=== PATIENT | male | born 1970 | race Caucasian/White ===

== ENCOUNTER 2016-12-10 20:08 | Emergency (ER) | payer OTHER ==
[~2016-12-10] VITALS: Ht 175.3 cm; Wt 68.0 kg
--- OUTSIDE RECORDS SUMMARY | 2016-12-10 20:19 | External Medical Summary Rpt ---
Author Author , EARLINE PATTEN Address Unknown Phone [email or web address] [email or web address] Care Tribal Delegate Name Role Phone Joan Stanton MD, Unavailable Unavailable Joan Stanton MD Purpose Continuity of Care Document - 11-24-2012 through 2016 Problems Code Diagnosis DOS Provider Status 451.11 451.11 11-24-2012 [place] [facility]LE[facility] ITIS,FEMORA L VEIN(DEEP/S UP) Allergies, Adverse Reactions, Alerts Type Drug Allergy Adverse Reaction to Substance Substance Reaction Severity Penicillin Unknown Unknown Penicillin G Unknown Unknown Medications Na ND Rx Da Fi Fi Am Da Di Ph RX Ph St me C No te ll ll ou ys ag ar # ys at rm s nt no ma ic us Or Da si cy ia de te s n re d LO 00 07 0 No VE 07 -1 NO 50 0- Lo X 62 20 ng 10 30 13 er 0 1 MG Ac /M ti L ve SY RI NG E HY [address] 40 -1 OC 60 0- Lo OD 36 20 ng ON 56 13 er -A 2 CE Ac TA ti [place] ve NO PH EN 5- 32 5 Vital Signs 11-24-2012 22:46 Name Value Interpretat Reference Comment ion Range Body 98.7 [degF] Temperature BP 89 mm[Hg] Diastolic BP Systolic 160 mm[Hg] Heart 107 /min Rate/Pulse O2% 98 % Respiratory 20 /min Rate Encounters Encounter Start End Date Code Location Performer Type Date Emergency MARK Stanton MD (ER) 3 21:31 3 22:47 [facility]
--- OUTSIDE RECORDS SUMMARY | 2016-12-10 20:19 | External Medical Summary Rpt ---
Author Author , EARLINE PATTEN Address Unknown Phone [email or web address] [email or web address] Care Cheese Sprayer Name Role Phone Joan Stanton MD, Unavailable Unavailable Joan Stanton MD Purpose Continuity of Care Document - 11-24-2012 through 2016 Problems Code Diagnosis DOS Provider Status 451.11 451.11 11-24-2012 [place] [facility]LEBITIS&T [facility] ITIS,FEMORA L VEIN(DEEP/S UP) Allergies, Adverse Reactions, [...] er -A 2 CE Ac TA ti [place] ve NO PH EN 5- 32 5 Vital Signs 11-24-2012 22:46 Name Value Interpretat Reference Comment ion Range Body 98.7 [degF] Temperature BP 89 mm[Hg] Diastolic BP Systolic 160 mm[Hg] Heart 107 /min Rate/Pulse O2% 98 % Respiratory 20 /min Rate Encounters Encounter Start End Date Code Location Performer Type Date Emergency MARK Stanton MD (ER) 3 21:31 3 22:47 [facility]
--- OUTSIDE RECORDS SUMMARY | 2016-12-10 20:20 | External Medical Summary Rpt ---
Author Author EARLINE Ayala, [employer] Organization [employer] Address Unknown Phone Unavailable
--- OUTSIDE RECORDS SUMMARY | 2016-12-10 20:20 | External Medical Summary Rpt ---
Author Author SEAN Address Unknown Phone [email or web address] Purpose Continuity of Care Document - through 2016
--- OUTSIDE RECORDS SUMMARY | 2016-12-10 20:20 | External Medical Summary Rpt ---
Author Author SEAN Address Unknown Phone [email or web address] Purpose Continuity of Care Document - through 2016
--- OUTSIDE RECORDS SUMMARY | 2016-12-10 20:20 | External Medical Summary Rpt ---
Demographics Preferred Language Icelandic Marital Status Unknown Lutheran Affiliation Unknown Race Unknown Ethnic Group Unknown Author Author , SEAN PATTEN Address Unknown Phone Immunization Unable to retrieve immunization data due to connection failure with Immunization Registry. Please try again later.
--- OUTSIDE RECORDS SUMMARY | 2016-12-10 20:20 | External Medical Summary Rpt ---
Demographics Preferred Language Samoan Marital Status Unknown Yarsani Affiliation Unknown Race Unknown Ethnic Group Unknown Author Author , SEAN PATTEN Address Unknown Phone Immunization Unable to retrieve immunization data due to connection failure with Immunization Registry. Please try again later.
--- NOTE | 2016-12-10 20:42 | Urgent Treatment Center Report ---
History of Present Issue Date/Time Seen by Provider 12/10/162028 Visit Reason Pt arrived:Walked Presenting Problem:PT HAS RT HIP JOINT PAIN THAT STARTED A FEW DAYS AGO. PAIN INCREASES WHEN PT TRIES TO STAND. DENIES INJURY Location if Accident: Onset of symptoms date/time:/ or onset unknown for:MEDICAL HX UNKNOWN Have you (or family members/close friends) recently traveled outside the [place]? N If Yes, where/when: Have you had exposure to infectious disease within the past month? TB? Other? Specify: Here w/ c/o right low back pain. Started around 4pm today without known injury or accident. Off work today. Sat around more then typical. Was sitting and went to stand when pain noticed. Currently 8/10. Stabbing. Worse with movement. Most severe when laying down or trying to change positions. Hasn't taken or tried anything for symptoms. Denies N/T, LE weakness, urinary incontinence, changes bowel or bladder habits, any radiation of pain, chest pain , soa, generalized weakness. Source patient Exam Limitations no limitations ALLERGIES Coded Allergies: Penicillins (Intermediate, 12/10/16) History Medical History General Angina: No FL: No Hypertension? No Hyperlipidemia? No COPD? No Asthma? No CVA? No Seizures? No Diabetes? No GB Disease: No MRSA? No TB? No Cancer? No Immunization HX DT/Tetanus 1-4 YRS Surgical Hx Previous Surgery?Y HERNIA REPAIR Social History Smoking Hx Smoker: Current Every Day Smoker Tobacco: Yes Type Snuff Alcohol Alcohol: No Review of Systems All Other Systems Reviewed and Negative Constitutional denies chills, denies fever, denies malaise Respiratory see HPI Cardiovascular see HPI, denies palpitations, denies syncope Gastrointestinal denies nausea, denies vomiting Genitourinary denies: dysuria, frequency, hesitancy, hematuria, pain. Musculoskeletal see HPI, denies other (no hip, leg, knee pain) Skin denies change in color, denies lesions, denies lumps, denies rash Psychiatric/Neurological see HPI Physical Exam Vital Signs Vital Signs Date Time Temp Pulse Resp B/P Pulse O2 O2 Flow FiO2 Ox Delivery Rate 12/10 2128 98.9 69 20 135/89 98 12/11 2047 20 12/11 2019 98.9 69 20 135/89 98 General Appearance mild distress (changing positions slowly) Neck non-tender, supple, full range of motion Respiratory Status No: respiratory distress. Lung Sounds anterior: lungs clear. posterior: lungs clear. bilateral: lungs clear. Cardiovascular regular rate/rhythm, no peripheral edema, no murmur, normal peripheral pulses Gastrointestinal normal bowel sounds, non tender, soft, no organomegaly, no pulsatile mass Back normal inspection, no CVA tenderness, no vertebral tenderness, bowel/ bladder continent, gait normal, strt leg raising(L)-NML, strt leg raising(R)-NML Extremities non-tender (BLE), normal range of motion (Benigno hips), normal inspection (BLE) Strength 5 Lower Ext (L), 5 Lower Ext (R) Neurologic alert, no motor/sensory deficits, oriented x 3 Mental status normal mood/affect Skin intact, normal color, warm/dry Medical Decision Making LABS/Meds/Orders Pt receiving controlled substance in ED? No Results/Orders Current Medication Orders Sig/Humble Start time Last Medication Dose Route Stop Time Status Admin Ketorolac 60 MG ONCE ONE 12/10 2044 DC 12/10 Tromethamine IM 12/10 Orphenadrine Citrate 60 MG ONCE ONE 12/10 2044 DC 12/10 IM 12/10 Orphenadrine Citrate 0 .STK-MED ONE 12/11 2043 DC .ROUTE Ketorolac 0 .STK-MED ONE 12/10 2042 DC Tromethamine .ROUTE Progress [facility] Progress Notes 1 Date 12/10/16 Time 2114 Comment starting to notice slight improvement. Reports ready to go home and rest. Request work note for and Thursday. Agrees to FU for new, worsening or persistant symptoms. [facility] Progress Notes 2 Date 12/10/16 Time 2133 Comment Pain at discharge "markedly improved". 06/27 Departure Departure Time of Disposition 2115 Disposition DC Home or Self Care(routine) Clinical Impression Primary Impression: Right low back pain Qualifiers: Chronicity: acute Sciatica presence: without sciatica Qualified Code: M54.5 - Low back pain Condition STABLE Referrals NIKOLAY MEDINA (Family) Call tomorrow if no relief with administered or prescribed medication. Return to ER tonight for new or worsening symptoms. Patient Instructions DI for Low Back Pain Additional Instructions * Naproxen every 12 hours with meal as needed for pain/inflammation. * Remember you had a toradol shot, similiar anti-inflammatory in clinic this evening. Nothing further tonight except tylenol. * No additional anti-inflammatories like motrin, aleve, advil with naproxen. You CAN still take Tylenol every 4 hours as needed if you need something more for pain. * Ice x15-20 mins 3-4 times a day for first 48 hours after the initial injury followed by moist heat x15-20 mins 3-4 times a day to affected area * Muscle relaxer every 8 hours as needed for muscle spasms but remember, it WILL cause drowsiness. You can NOT take it and drive, operate machinary or care for small children. Remember you had a muscle relaxer shot in the clinic this evening. Nothing further until tomorrow. * Keep this area active. No movement leads to more stiffness. However, take it easy too and avoid heavy lifting, pushing, pulling. Discharge Counseling Counseled pt/family regarding diagnosis, medications/RX, home care, follow up needs Prescriptions Current Visit Scripts NAPROXEN (NAPROSYN 500MG TAB) 500 MG PO BID #14 TAB Take with food Cyclobenzaprine Hcl (Flexeril) 0.5-1 TAB PO TIDP PRN muscle spasm #6 TAB will cause drowsiness at 9299
[2016-12-10] MEDS ORDERED: NAPROSYN 500MG500 MG PO (21:27)
[2016-12-10] MEDS ORDERED: FLEXERIL10 MG PO (21:27)
[2016-12-10 21:29] VITALS: BP 135/89
== END 2016-12-10 21:32 | disposition home or self-care (01) ==
LOC: UTC 20:08
DX: M54.5 Low back pain (principal)